=== PATIENT | male | born 1925 | race Caucasian/White ===

== ENCOUNTER → 2016-05-24 | Outpatient (CLI) | payer MEDICARE, OTHER ==
[~2016-05-24] MED LIST: /ADVA50050; /TAMS4CA; /TIOT18INH; ACET500C PO; BABY81CH; FISHCAP; FURO40TA2; ISOS30BRAN; LASI80TA; NITR4TASL SL; OXYGEN; PRIL20CA; PROS5TAB PO; ROCA0.25; ROSU10TA; SYMB16INH INH; SYNT50TA PO; TRAVATAN; VITAMIN D50000 UNT; XOPE1.252; [UNRECOGNIZED DRUG - OTHER]
== END ==
LOC: M SMT 13:07
PROVIDERS: ATTEND Nurse Practitioner Adult Health
DX: E03.9 Hypothyroidism, unspecified (principal)